=== PATIENT | male | born 1955 | race Caucasian/White ===

== ENCOUNTER → 2021-12-14 | Day surgery (SDC) | payer MEDICARE ==
[~2021-12-14] VITALS: Ht 182.9 cm; Wt 106.6 kg
[~2021-12-14] MED LIST: BENEFIBER475 GM PO; ESTER-C 500 MG1 EACH PO; FLOMAX0.4 MG PO; GLUCOSAMIN-CHO1 EACH PO; LIPITOR20 MG PO; LOSARTAN POTASS25 MG PO; LOVAZA1 GM PO; ONE DAILY FOR1 EACH PO; SAW PALMETTO500 MG PO; VITAMIN B12 PO; VITAMIN D3125 MC1 PO
== END | disposition home or self-care (01) ==
LOC: FAS 07:00
DX: Z12.11 Encounter for screening for malignant neoplasm of colon (principal); G89.29 Other chronic pain; K62.89 Other specified diseases of anus and rectum; E78.00 Pure hypercholesterolemia, unspecified; E11.9 Type 2 diabetes mellitus without complications; Z88.5 Allergy status to narcotic agent; Z88.0 Allergy status to penicillin; Z80.0 Family history of malignant neoplasm of digestive organs
CPT/HCPCS: J2250; J2704; J7120